=== PATIENT | female | born 1985 | race Caucasian/White ===

== ENCOUNTER → 2019-09-06 14:03 | Outpatient (BNVA) | payer OTHER, SELFPAY | PROVIDERS: Family Provider Nurse Practitioner Family; PCP Nurse Practitioner Family; Visit Provider Nurse Practitioner | DX: H66.92 Otitis media, unspecified, left ear (principal); J30.2 Other seasonal allergic rhinitis; Z30.09 Encounter for other general counseling and advice on contraception; J32.9 Chronic sinusitis, unspecified; Z30.011 Encounter for initial prescription of contraceptive pills | CPT/HCPCS: 84702 ==

== ENCOUNTER → 2020-06-18 10:42 | Outpatient (BNVA) | payer OTHER, SELFPAY | PROVIDERS: Family Provider Nurse Practitioner Family; PCP Nurse Practitioner Family; Visit Provider Nurse Practitioner Women's Health | DX: N39.0 Urinary tract infection, site not specified (principal); Z01.411 Encounter for gynecological examination (general) (routine) with abnormal findings; Z11.59 Encounter for screening for other viral diseases | CPT/HCPCS: 80053; 88175 ==

== ENCOUNTER → 2022-04-06 12:12 | Outpatient (BNVA) | payer OTHER, SELFPAY | PROVIDERS: Family Provider Nurse Practitioner Family; PCP Nurse Practitioner Family; Visit Provider Family Medicine | DX: M79.641 Pain in right hand (principal) | CPT/HCPCS: 73120 ==

== ENCOUNTER → 2022-07-12 11:08 | Outpatient (BNVA) | payer OTHER, SELFPAY | PROVIDERS: Family Provider Nurse Practitioner Family; PCP Family Medicine; Visit Provider Family Medicine | DX: T78.40XA Allergy, unspecified, initial encounter (principal); H66.93 Otitis media, unspecified, bilateral; J06.9 Acute upper respiratory infection, unspecified | CPT/HCPCS: 87400 ==

== ENCOUNTER → 2023-07-06 14:58 | Outpatient (BNVA) | payer OTHER, SELFPAY | PROVIDERS: Family Provider Nurse Practitioner Family; PCP Family Medicine; Visit Provider Nurse Practitioner Family | DX: E04.9 Nontoxic goiter, unspecified (principal); Z79.899 Other long term (current) drug therapy; Z13.6 Encounter for screening for cardiovascular disorders; E55.9 Vitamin D deficiency, unspecified | CPT/HCPCS: 80053; 80061; 81003; 82306; 84439; 84443; 84481; 85025; 86376 ==

== ENCOUNTER 2023-07-25 08:56 | Outpatient (CLI) | payer OTHER, SELFPAY ==
--- NOTE | 2023-07-25 09:30 | US_ITS ---
WS: [id number] THYROID ULTRASOUND HISTORY: E04.9 - Nontoxic goiter, unspecified COMPARISON: None available. Right lobe: 1.6 cm x 1.8 cm x 4.9 cm (w x ap x l). Volume: 7.2 cm3. Normal size and echotexture. No significant are dominant nodules are present. Left lobe: 1.5 cm x 1.4 cm x 5.2 cm (w x ap x l). Volume: 5.7 cm3. Normal size and echotexture. No significant or dominant nodules are present. Isthmus: 0.3 cm. IMPRESSION: Normal thyroid ultrasound.
== END 2023-07-25 08:57 | disposition home or self-care (01) ==
LOC: RAD 08:56
PROVIDERS: Family Provider Nurse Practitioner Family; PCP Family Medicine; Visit Provider Nurse Practitioner Family
DX: E04.9 Nontoxic goiter, unspecified (principal)
CPT/HCPCS: 76536

== ENCOUNTER → 2024-11-15 10:55 | Outpatient (BNVA) | payer BC, SELFPAY | PROVIDERS: Family Provider Nurse Practitioner Family; PCP Family Medicine; Visit Provider Nurse Practitioner Women's Health | DX: N89.8 Other specified noninflammatory disorders of vagina (principal) | CPT/HCPCS: 88305 ==